=== PATIENT | male | born 1935 | race Caucasian/White ===

== ENCOUNTER 2018-11-16 12:08 | Inpatient (IN) | payer OTHER ==
[~2018-11-16] VITALS: Ht 152.4 cm; Wt 89.8 kg
[2018-11-16] VITALS (12 sets, daily range): BP systolic 91–151; BP diastolic 39–103
[~2018-11-16 12:08] MED LIST: ASPIRIN325 PO; CALCIUM + D SO1 EACH PO; FISH OIL 1,001000 M2 PO; FLOMAX0.4 MG PO; IMDUR 30 MG TAB30 M1 PO; LOPRESSOR50 MG PO; MULTIVITAMINS1 EAC7 PO; NIACIN 500 MG500 M1 PO; RED YEAST RICE600 MG PO; SYNTHROID PO
[2018-11-16 12:38] LABS: ABSOLUTE EOSINOPHILS 0.2 thou/uL (0.0-0.7); ABSOLUTE LYMPHOCYTES 1.6 thou/uL (0.8-5.3); ABSOLUTE MONOCYTES 0.5 thou/uL (0.0-1.2); ABSOLUTE NEUTROPHILS 4.7 thou/uL (1.6-8.1); BASOPHILS 0.6 %; EOSINOPHILS 3.2 %; HEMATOCRIT 38.7 % (42.0-52.0); HEMOGLOBIN 13.3 gm/dL (14.0-18.0); MCH 31.9 pg (26.0-34.0); MCHC 34.3 g/dL (28.0-37.0); MCV 92.8 fL (80.0-100.0); MPV 7.8 fl. (7.2-11.1); NUCLEATED RBCS 0 /100WBC; PLATELET COUNT* 176 thou/uL (150-400); POLYS 66.2 %; RBC 4.17 mil/uL (4.50-6.00); RDW-CV 13.3 % (10.5-14.5); WBC 7.1 thou/uL (4.0-11.0)
[2018-11-16 12:48] LABS: ANION GAP 6 mmol/L (7-16); BUN 14 mg/dL (7-18); CALCIUM 7.4 mg/dL (8.5-10.1); CHLORIDE 110 mmol/L (98-107); CO2 25 mmol/L (21-32); CREATININE 1.1 mg/dL (0.6-1.3); GLUCOSE 112 mg/dL (70-99); POTASSIUM 4.1 mmol/L (3.5-5.1); SODIUM 141 mmol/L (136-145)
[2018-11-16 12:49] LABS: APTT 32.3 Seconds (25.0-31.3); INR 1.1; PROTIME 11.4 Seconds (9.20-11.50)
[2018-11-16 12:57] LABS: ALBUMIN 2.9 g/dL (3.4-5.0); ALKALINE PHOSPHATASE 71 U/L (46-116); LIPASE 59 U/L (73-393); SGOT 21 U/L (15-37); SGPT 19 U/L (30-65); TOTAL BILIRUBIN 0.6 mg/dL (<0.1-1.0); TOTAL PROTEIN 5.5 g/dL (6.4-8.2); TROPONIN-I LEVEL <0.06 ng/mL (<0.06)
[2018-11-16 13:51] LABS: URINE BILIRUBIN NEGATIVE (Negative); URINE BLOOD NEGATIVE (Negative); URINE CLARITY CLEAR; URINE COLOR YELLOW; URINE GLUCOSE-RANDOM NEGATIVE (Negative); URINE KETONES NEGATIVE (Negative); URINE LEUKOCYTES-REFLEX NEGATIVE (Negative); URINE NITRITE-REFLEX NEGATIVE (Negative); URINE PROTEIN NEGATIVE (Negative); URINE SPECIFIC GRAVITY 1.015 (1.005-1.030); URINE UROBILINOGEN 0.2 E.U./dl (0.2-1.0)
--- NOTE | 2018-11-16 18:34 | NUR ---
this marketing underwriter assumed care of pt at 1405 when pt was admitted to icu for sycope incident x3 and bradycardia. pt a&o pleasant. pt progressed towards goals during shift hr increased from 40's to 50's denies feeling faint and no c/o pain consumed all of dinner and is up with assistance to use commode and urinal
[2018-11-17] VITALS (14 sets, daily range): BP systolic 101–177; BP diastolic 48–86
[2018-11-17 04:07] LABS: HEMATOCRIT 39.6 % (42.0-52.0); HEMOGLOBIN 13.7 gm/dL (14.0-18.0); MCH 31.9 pg (26.0-34.0); MCHC 34.5 g/dL (28.0-37.0); MCV 92.3 fL (80.0-100.0); MPV 7.8 fl. (7.2-11.1); RBC 4.29 mil/uL (4.50-6.00); RDW-CV 13.3 % (10.5-14.5); WBC 7.2 thou/uL (4.0-11.0)
[2018-11-17 04:58] LABS: MAGNESIUM 1.9 mg/dL (1.8-2.4); POTASSIUM 4.2 mmol/L (3.5-5.1)
--- NOTE | 2018-11-17 05:26 | NUR ---
PATIENT RESTING IN BED FOR THE DURATION OF THE SHIFT. VSS. ASSESSMENTS CHARTED. PATIENT DENIES HAVING ANY PAIN THIS NIGHT AND HAS HAD NO SYNCOPYL EPISODES WHILE AWAKE. PATIENT IS EAGER TO DISCHARGE AND RETURN HOME SOON POSSIBLE. PATIENT IS ON 2L O2 NC, WILL DESATURATE TO THE LOW 80'S WHILE SLEEPING WHEN ON RA. NO SIGNIFICANT EVENTS THIS SHIFT. WCTM.
--- NOTE | 2018-11-17 10:33 | NUR ---
ICU rounds and assessment: Pt tele status. Pt lives at home with . Pt and pt expressed wanting to dc home today; Dr Izquierdo to assess before final decision on dc plan. SW/CM to remain available to assist if needs arise.
--- NOTE | 2018-11-17 11:15 | EKG ---
[place] [address] ELECTROCARDIOGRAM REPORT Name: TROYIDANIAJULIETH Room: [address] ADM IN .R.#: [id number] Admission: 11/16/18 Attend Phys: Evelyn Saleem MD Discharge: Date of : 37 Report #: [id number] THIS REPORT FOR: //name// [facility] ED Test Date: 2018-11-16 Test Time: 12:33:26 Pat Name: JULIETH KEMP Department: Room: [facility] Gender: M Registered Nurse Post Partum: : 1935 Requested By: Eamon Van Order Number: [id number] MD: Manjeet Izquierdo Measurements Intervals [place] Rate: 60 P: 31 AK: 209 QRS: 65 QRSD: 121 T: 181 QT: 532 QTc: 532 Interpretive Statements Sinus rhythm Nonspecific intraventricular conduction delay Probable anterior infarct, age indeterminate Lateral leads are also involved Baseline wander in lead(s) aVL No previous ECG available for comparison Electronically Signed On 11-17-2018 11:15:34 CDT by Manjeet Izquierdo [email or web address] <ELECTRONICALLY SIGNED> By: Manjeet Izquierdo MD, FAC 11/17/18 1115 1233 1233 Manjeet Izquierdo MD, [facility] /EPI
[2018-11-17] MEDS ORDERED: LOPRESSOR50 MG PO (12:36)
--- NOTE | 2018-11-17 12:53 | NUR ---
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
--- NOTE | 2018-11-17 13:03 | NUR ---
PT DISCHARGED PRIOR TO OT EVAL.
--- NOTE | 2018-11-17 14:02 | 2DMMODE ---
[place] [address] 2 D/M-MODE ECHOCARDIOGRAM Name: JULIETH KEMP Room: [address] IN [facility]#: [id number] Admission: 11/16/18 Attend Phys: Evelyn Saleem, Discharge: 11/17/18 Date of : 37 Date of Service: 11/17/18 1402 Report #: [id number] THIS REPORT FOR: //name// APPROVED REPORT Study performed: 11/17/2018 09:48:30 EXAM: Comprehensive 2D, Doppler, and color-flow Echocardiogram Patient Location: In-Patient Room #: 001 Status: routine BSA: 2.06 HR: 65 bpm BP: 177/86 mmHg Rhythm: NSR Other Information Study Quality: Good Indications Bradycardia 2D Dimensions IVSd: 10.53 (7-11mm) LVOT Diam: 24.14 (18-24mm) LVDd: 52.76 mm PWd: 10.55 (7-11mm) Ascending Ao: 37.42 (22-36mm) LVDs: 35.98 (25-40mm) Aortic Root: 35.61 mm Volumes Left Atrial Volume (Systole) LA ESV Index: 43.00 mL/m2 Aortic Valve AoV Peak Mauri.: 1.83 m/s AO Peak Gr.: 13.44 mmHg LVOT Max P.28 mmHg AO Mean Gr.: 7.03 mmHg LVOT Mean P.25 mmHg LVOT Max V: 1.15 m/s AO V2 VTI: 38.22 cm LVOT Mean V: 0.66 m/s JERAMIE (VTI): 3.02 cm2 LVOT V1 VTI: 25.21 cm Mitral Valve E/A Ratio: 1.15 MV Decel. Time: 236.20 ms MV E Max Mauri.: 0.99 m/[place] [address] 2 D/M-MODE ECHOCARDIOGRAM Name: JULIETH KEMP Room: [address] IN .R.#: [id number] Admission: 11/16/18 Attend Phys: Evelyn Saleem, Discharge: 11/17/18 Date of : 37 Date of Service: 11/17/18 1402 Report #: [id number] MV PHT: 68.50 ms MVA (PHT): 3.21 cm2 TDI E/Lateral E': 7.07 E/Medial E': 6.19 Medial E' Mauri.: 0.16 m/s Lateral E' Mauri.: 0.14 m/s Pulmonary Valve PV Peak Mauri.: 0.85 m/s PV Peak Gr.: 2.87 mmHg Left Ventricle The left ventricle is normal size. There is normal LV segmental wall motion. There is normal left ventricular wall thickness. Left ventricular systolic function is normal. The left ventricular ejection fraction is within the normal range. LVEF is 55-60%. Right Ventricle The right ventricle is normal size. The right ventricular systolic function is normal. Atria Left atrium is moderately dilated. The right atrium size is normal. Aortic Valve Mild aortic valve sclerosis. No aortic regurgitation is present. There is no aortic valvular stenosis. Mitral Valve The mitral valve is normal in structure. Mild mitral regurgitation. No evidence of mitral valve stenosis. Tricuspid Valve The tricuspid valve is normal in structure. Unable to assess PA pressure. Trace tricuspid regurgitation. Pulmonic Valve The pulmonary valve is normal in structure. There is no pulmonic valvular regurgitation. Great Vessels The aortic root is normal in size. IVC is normal in size and collapses >50% with inspiration[place] [address] 2 D/M-MODE ECHOCARDIOGRAM Name: JULIETH KEMP JATIN Room: [address]#: [id number] Admission: 11/16/18 Attend Phys: Evelyn Saleem, Discharge: 11/17/18 Date of : 37 Date of Service: 11/17/18 1402 Report #: [id number] There is no pericardial effusion. <Conclusion> LVEF is 55-60%. Left atrium is moderately dilated. Mild aortic valve sclerosis. Mild mitral regurgitation. <ELECTRONICALLY SIGNED> By: Manjeet Izquierdo MD, FACC 11/17/181401 01 01 Manjeet Izquierdo MD, FACC /INF
--- NOTE | 2018-11-19 14:08 | CON ---
[address] [address] CONSULTATION Name: JULIETH KEMP Room: [address] IN M.R.#: [id number] Admission: 11/16/18 Attend Phys: Evelyn Saleem MD Discharge: 11/17/18 Date of : 37 Report #: [id number] THIS REPORT FOR: //name// CC: Laci Saleem DATE OF SERVICE: 11/17/2018 HISTORY OF PRESENT ILLNESS: The patient is an 82-year-old white male who I was asked to see in the hospital today after a syncopal spell. The history is obtained from the patient. There are no old records here at [facility]. The patient states he had a coronary stent placed in 1997 at [facility]. He has been followed by Dr. Manohar Martinez. His last stent was in 2006. He has done well since that time. He stays fairly active despite his age. Yesterday, he was at protestant sitting when he suddenly felt lightheaded and apparently had a brief loss of consciousness. He was brought to the hospital by paramedics. He has taken nitroglycerin before the episode. He became diaphoretic, but denied any significant chest pain, shortness of breath, palpitations. He has had no recent vomiting, diarrhea, or blood in stool. I have asked to see him for further evaluation and treatment. He apparently did have a syncopal spell years ago. PAST MEDICAL HISTORY: He has had previous hemorrhoid surgery, hernia, cataract extraction, knee surgery. He has a history of glucose intolerance. No history of hypertension. MEDICATIONS: He takes red yeast rice tablets twice a day, niacin, aspirin 1 a day, metoprolol tartrate 50 mg a day, Imdur 30 mg a day, Flomax, Synthroid. ALLERGIES: He has no known drug allergies. FAMILY HISTORY: Positive for heart disease. SOCIAL HISTORY: He is . He and his live in [place], [place]. 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 No smoking or alcohol abuse. REVIEW OF SYSTEMS: He has had no history of stroke, asthma, headaches, liver disease, kidney disease, chronic skin condition. He has had a skin cancer removed in the past. No psychiatric illness. PHYSICAL EXAMINATION: GENERAL: Revealed an elderly male, lying in bed, he appeared in no distress. VITAL SIGNS: When he arrived yesterday, he had a blood pressure of 130/70, his pulse was 48. He was afebrile. HEENT: He is anicteric. Conjunctivae pink. [place] [address] CONSULTATION Name: JULIETH KEMP Room: [address] M.R.#: [id number] Admission: 11/16/18 Attend Phys: Evelyn Saleem MD Discharge: 11/17/18 Date of : 37 Report #: [id number] NECK: Veins do not appear distended. No carotid bruits. Neck supple. CHEST: Clear to auscultation. CARDIOVASCULAR: Regular rate and rhythm. ABDOMEN: Soft. EXTREMITIES: Had no edema. Dorsalis pedis pulse 2+ right, cannot palpate the left. SKIN: Cool and dry. NEUROLOGIC: Nonfocal. RADIOLOGICAL DATA: His ECG showed a sinus bradycardia with nonspecific T-wave changes. His workup yesterday, he had a portable chest x-ray showed cardiomegaly, otherwise clear lung milligan. LABORATORY WORK: Sodium 142, creatinine 1.0. Liver function studies were normal. Albumin 2.9. Troponin 0.06. TSH 2.4. White blood cell count 7.2, hemoglobin 13.7. His urinalysis is negative for protein, negative for leukocytes. IMPRESSION AND RECOMMENDATIONS: 1. Syncope. Suspect vasovagal. I would recommend that he avoid dehydration. 2. Sinus bradycardia. I would decrease the dose of his beta-mitzy. 3. Coronary artery disease. Previous stenting. I would continue aspirin 81 mg a day. Since the patient is having no significant angina at this time, I think it is reasonable to consider discontinuing long-acting nitroglycerin. <ELECTRONICALLY SIGNED> By: Manjeet Izquierdo MD, FACC 11/19/18 1408 1209 Manjeet Izquierdo MD, FACC /nt
== END 2018-11-17 12:56 | disposition home or self-care (01) | DRG 309 ==
LOC: M.ERS 12:08 → M.TBA-ER 13:01 → M.ICU 13:01 → M.ERS 13:01 → M.ICU 14:16
PROVIDERS: Emergency Medicine Emergency Medical Services; ADMIT Internal Medicine
DX: R00.1 Bradycardia, unspecified (principal); E44.1 Mild protein-calorie malnutrition; I10 Essential (primary) hypertension; E03.9 Hypothyroidism, unspecified; Z96.651 Presence of right artificial knee joint; I25.10 Atherosclerotic heart disease of native coronary artery without angina pectoris; Z95.5 Presence of coronary angioplasty implant and graft; Z79.899 Other long term (current) drug therapy; Z79.82 Long term (current) use of aspirin; Z98.42 Cataract extraction status, left eye; Z98.41 Cataract extraction status, right eye; Z82.49 Family history of ischemic heart disease and other diseases of the circulatory system; Z68.38 Body mass index [BMI] 38.0-38.9, adult